=== PATIENT | male | born 1995 | race Caucasian/White ===

== ENCOUNTER 2016-10-25 00:37 | Emergency (ER) | payer SELFPAY ==
[~2016-10-25] VITALS: Ht 162.6 cm; Wt 70.3 kg
[2016-10-25 02:20] VITALS: BP 115/68
== END 2016-10-25 02:20 | disposition other institution (70) ==
LOC: ED 00:37
DX: S01.01XA Laceration without foreign body of scalp, initial encounter (principal); X58.XXXA Exposure to other specified factors, initial encounter; Y93.89 Activity, other specified; Y99.8 Other external cause status; Y92.89 Other specified places as the place of occurrence of the external cause
CPT/HCPCS: 90715

== ENCOUNTER 2016-10-25 00:37 | Emergency (ER) | payer OTHER | END 2016-10-25 02:20 | disposition other institution (70) | LOC: ED 00:37 | DX: Z02.89 Encounter for other administrative examinations (principal) ==